=== PATIENT | female | born 1990 | race Hispanic/Latino ===

== ENCOUNTER 2022-10-02 06:56 | Day surgery (SDC) | payer BC ==
[2022-10-01 09:22] LABS: BASOPHILS % (AUTO) 0.5 % (0.0-5.0); EOSINOPHILS % (AUTO) 2.1 % (0.0-8.0); HEMATOCRIT 38.8 % (36-48); LYMPHOCYTES % (AUTO) 26.6 % (21.0-51.0); MEAN CORPUSCULAR HEMOGLOBIN 31.6 pg (27.0-33.0); MEAN CORPUSCULAR HGB CONC 33.8 g/dL (32.0-36.0); MEAN CORPUSCULAR VOLUME 93.7 fL (79-99); MONOCYTES % (AUTO) 4.9 % (3.0-13.0); NEUTROPHILS % (AUTO) 65.4 % (40.0-77.0); PLATELET COUNT (AUTO) 378 K/uL (130-400); RED BLOOD CELL COUNT(AUTO) 4.14 MIL/uL (4.00-5.50); RED CELL DISTRIBUTION WIDTH 12.7 % (11.0-15.5); WHITE BLOOD COUNT (AUTO) 9.7 K/uL (4.8-10.8)
[2022-10-01 09:31] VITALS: BP 127/85
[~2022-10-02] VITALS: Ht 162.6 cm; Wt 81.6 kg
[~2022-10-02 06:56] MED LIST: prenatal PO
[2022-10-02 07:10] VITALS: BP 122/78
[2022-10-02] MEDS ORDERED: CEFAZOLIN SODIUM 2 GM VIAL ONE (07:16)
[2022-10-02] MEDS ORDERED: LACTATED RINGERS 1000ML 1,000 ML IV ONE (07:16)
[2022-10-02] MEDS ORDERED: ONDANSETRON 4MG INJ ONE (07:54)
[2022-10-02] MEDS ORDERED: FENTANYL CITRATE PF 50 MCG/1 ML 2ML VIAL ONE ×2 (07:54→08:37)
[2022-10-02] MEDS ORDERED: PROPOFOL 10 MG/ML 20ML VIAL IV ONE (07:54)
[2022-10-02] MEDS ORDERED: MIDAZOLAM HCL 1 MG/ML 2ML VIAL ONE (07:54)
[2022-10-02] MEDS ORDERED: ROCURONIUM 10MG/1ML SYR 10 MG/ML ML ONE (07:54)
[2022-10-02] MEDS ORDERED: CEFAZOLIN SODIUM 2 GM VIAL IVPB ONE (08:30)
[2022-10-02] MEDS ORDERED: OXYTOCIN 10 USP UNITS/ML ONE (08:35)
[2022-10-02] MEDS ORDERED: CALDOLOR 800MG+NS 250ML 250 ML IV ONE (08:55)
[2022-10-02 09:50] VITALS: BP 117/72
[2022-10-02 10:00] VITALS: BP 110/70
[2022-10-02 10:10] VITALS: BP 115/72
[2022-10-02 10:20] VITALS: BP 112/73
== END 2022-10-02 10:35 | disposition home or self-care (01) ==
LOC: DAH 06:56
PROVIDERS: ATTEND Obstetrics & Gynecology
DX: O02.1 Missed abortion (principal); Z20.822 Contact with and (suspected) exposure to COVID-19; N81.2 Incomplete uterovaginal prolapse; K21.9 Gastro-esophageal reflux disease without esophagitis
CPT/HCPCS: 84703; 85025; 86850; 86900; 86901; 87426; 36415; 59820; A6260; A4663; J7120 ×2; J3010 ×2; J2250; J2590; J2704; J2405; J1741; J0690 ×2; A4215; A4223; A4222; A4221; A4510; A4600